=== PATIENT | male | born 1950 | race African-American/Black ===

== ENCOUNTER 2020-06-20 09:46 | Inpatient (IN) | payer BC ==
[~2020-06-20] VITALS: Ht 180.3 cm; Wt 90.7 kg
[2020-06-20] MEDS ORDERED: FUROSEMIDE 20MG/2ML VIAL IVP ONE (10:15)
[2020-06-20 10:35] LABS: CHLORIDE 107 mEq/L (98-107)
[2020-06-20 10:39] LABS: BASOPHILS % 0.7 % (0.0-2.0); EOSINOPHILS % 1.9 % (0.0-5.0); ETHANOL BLOOD < 10 mg/dL; HEMATOCRIT. 34.6 % (42.0-52.0); HEMOGLOBIN. 11.1 g/dL (14.0-18.0); LYMPHOCYTES % 16.4 % (20.0-50.0); MEAN CORPUSCULAR HEMOGLOBIN 25.6 pg (28.0-32.0); MEAN CORPUSCULAR VOLUME 80.1 fL (80.0-94.0); MEAN PLATELET VOLUME 7.7 fl (7.4-10.4); MONOCYTES % 12.9 % (2.0-8.0); NEUTROPHILS % 68.1 % (40.0-76.0); PLATELET 277 x1000/uL (130-400); RED BLOOD CELL COUNT 4.33 mill/uL (4.7-6.1); RED CELL DISTRIBUTION WIDTH 16.5 % (11.6-14.6)
[2020-06-20] MEDS ORDERED: ASPIRIN 81MG TABLET PO ONE (11:00)
[2020-06-20 11:31] LABS: *AMPHETAMINES SCREEN URINE NEGATIVE (NEGATIVE)
[2020-06-20 11:32] LABS: *BARBITURATES SCREEN URINE NEGATIVE (NEGATIVE); *BENZODIAZEPINES SCREEN URINE NEGATIVE (NEGATIVE); *COCAINE SCREEN URINE NEGATIVE (NEGATIVE); CANNABINOID URINE SCREEN NEGATIVE (NEGATIVE); METHADONE URINE SCREEN NEGATIVE (NEGATIVE); OPIATES URINE SCREEN NEGATIVE (NEGATIVE); PHENCYCLIDINE URINE SCREEN NEGATIVE (NEGATIVE)
[2020-06-20 13:00] VITALS: BP 148/93
[2020-06-20] MEDS ORDERED: MAGNESIUM/ALUMINUM HYDROXIDE/SIMETHICONE 30ML UDC PO PRN (13:15)
[2020-06-20] MEDS ORDERED: IPRATROPIUM/ALBUTEROL 0.5-3(2.5)MG/3ML NEB NEB PRN (13:15)
[2020-06-20] MEDS ORDERED: KETOROLAC 15MG/ML VIAL IV PRN (13:15)
[2020-06-20] MEDS ORDERED: NITROGLYCERIN 0.4MG TABLET SL SL PRN (13:15)
[2020-06-20] MEDS ORDERED: CLONIDINE 0.1MG TABLET PO PRN (13:15)
[2020-06-20] MEDS ORDERED: ACETAMINOPHEN 325MG TABLET PO PRN ×2 (13:15)
[2020-06-20] MEDS ORDERED: ONDANSETRON HCL 4MG/2ML INJ IV PRN (13:15)
[2020-06-20] MEDS ORDERED: GUAIFENESIN 200MG/10ML SUGAR FREE UDC PO PRN (13:15)
[2020-06-20 14:28] LABS: FOLIC ACID (FOLATE) SERUM 11.2 ng/mL (>5.38)
[2020-06-20] MEDS: ENOXAPARIN 40MG/0.4ML SYR SUBCUT SCH (15:32)
[2020-06-20 16:00] VITALS: BP 146/101
[2020-06-20 16:41] VITALS: BP 139/90
[2020-06-20 17:30] LABS: CREATINE KINASE MB FRACTION 2.4 ng/mL (0.5-3.6)
[2020-06-20] MEDS: CARVEDILOL 3.125 MG TABLET PO SCH (18:30)
[2020-06-20 20:00] VITALS: BP 141/96
[2020-06-20] MEDS: ASCORBIC ACID 500 MG TABLET PO SCH (20:47)
[2020-06-20] MEDS: SPIRONOLACTONE 25MG TABLET PO SCH (20:47)
[2020-06-20] MEDS: FUROSEMIDE 40MG/4ML VIAL IVP SCH (20:47)
[2020-06-20] MEDS ORDERED: ZOLPIDEM TARTRATE 5MG TABLET PO PRN (21:00)
[2020-06-21] VITALS: BP 127/88
[2020-06-21 00:33] LABS: CREATINE KINASE MB FRACTION 2.4 ng/mL (0.5-3.6)
[2020-06-21 04:00] VITALS: BP 120/65
[2020-06-21] MEDS: CARVEDILOL 3.125 MG TABLET PO SCH ×2 (05:19→17:06)
[2020-06-21 07:58] LABS: HEMATOCRIT. 36.9 % (42.0-52.0); HEMOGLOBIN. 11.7 g/dL (14.0-18.0); MEAN CORPUSCULAR HEMOGLOBIN 25.1 pg (28.0-32.0); MEAN CORPUSCULAR VOLUME 79.4 fL (80.0-94.0); PLATELET 290 x1000/uL (130-400); RED BLOOD CELL COUNT 4.65 mill/uL (4.7-6.1); RED CELL DISTRIBUTION WIDTH 16.5 % (11.6-14.6)
[2020-06-21 08:07] LABS: CHLORIDE 103 mEq/L (98-107)
[2020-06-21 08:15] LABS: PHOSPHORUS 3.5 mg/dL (2.5-4.9)
[2020-06-21 08:30] VITALS: BP 137/85
[2020-06-21] MEDS: FUROSEMIDE 40MG/4ML VIAL IVP SCH ×2 (09:35→21:01)
[2020-06-21] MEDS: ASCORBIC ACID 500 MG TABLET PO SCH ×2 (09:36→21:01)
[2020-06-21] MEDS: CHOLECALCIFEROL (D3) 1000 UNIT TABLET PO SCH (09:36)
[2020-06-21] MEDS: ASPIRIN 325MG EC TABLET PO SCH (09:36)
[2020-06-21] MEDS: ZINC SULFATE 220 MG ( 50 ) CAPSULE PO SCH (09:36)
[2020-06-21] MEDS: SPIRONOLACTONE 25MG TABLET PO SCH ×2 (09:37→21:01)
[2020-06-21] MEDS ORDERED: POTASSIUM CHLORIDE 20MEQ/PACKET PO NR (10:00)
[2020-06-21 12:00] VITALS: BP 144/85
[2020-06-21 15:47] LABS: PLATELET ESTIMATE NORMAL
[2020-06-21 16:00] VITALS: BP 128/88
[2020-06-21] MEDS: ENOXAPARIN 40MG/0.4ML SYR SUBCUT SCH (17:05)
[2020-06-21 20:00] VITALS: BP 111/66
[2020-06-22] VITALS: BP 119/86
[2020-06-22 04:00] VITALS: BP 149/99
[2020-06-22] MEDS: CARVEDILOL 3.125 MG TABLET PO SCH ×2 (06:17→18:01)
[2020-06-22 07:13] LABS: BASOPHILS % 0.6 % (0.0-2.0); EOSINOPHILS % 4.4 % (0.0-5.0); HEMOGLOBIN. 12.5 g/dL (14.0-18.0); LYMPHOCYTES % 26.7 % (20.0-50.0); MEAN CORPUSCULAR HEMOGLOBIN 25.4 pg (28.0-32.0); MEAN CORPUSCULAR VOLUME 79.2 fL (80.0-94.0); MEAN PLATELET VOLUME 8.7 fl (7.4-10.4); MONOCYTES % 14.6 % (2.0-8.0); NEUTROPHILS % 53.7 % (40.0-76.0); PLATELET 325 x1000/uL (130-400); RED BLOOD CELL COUNT 4.92 mill/uL (4.7-6.1); RED CELL DISTRIBUTION WIDTH 16.3 % (11.6-14.6)
[2020-06-22 07:24] LABS: CHLORIDE 102 mEq/L (98-107)
[2020-06-22 07:45] LABS: PHOSPHORUS 3.8 mg/dL (2.5-4.9)
[2020-06-22 08:00] VITALS: BP 144/103
[2020-06-22] MEDS: FUROSEMIDE 40MG/4ML VIAL IVP SCH ×2 (09:12→20:43)
[2020-06-22] MEDS: DOCUSATE SODIUM 100MG CAPSULE PO PRN (09:13)
[2020-06-22] MEDS: CHOLECALCIFEROL (D3) 1000 UNIT TABLET PO SCH (09:13)
[2020-06-22] MEDS: SPIRONOLACTONE 25MG TABLET PO SCH ×2 (09:13→20:43)
[2020-06-22] MEDS: ZINC SULFATE 220 MG ( 50 ) CAPSULE PO SCH (09:13)
[2020-06-22] MEDS: ASPIRIN 325MG EC TABLET PO SCH (09:13)
[2020-06-22] MEDS: ASCORBIC ACID 500 MG TABLET PO SCH ×2 (09:13→20:44)
[2020-06-22 12:31] VITALS: BP 138/86
[2020-06-22] MEDS: ENOXAPARIN 40MG/0.4ML SYR SUBCUT SCH (15:39)
[2020-06-22 16:36] VITALS: BP 134/77
[2020-06-22 20:00] VITALS: BP 163/89
[2020-06-23] VITALS: BP 125/77
[2020-06-23 04:00] VITALS: BP 140/87
[2020-06-23] MEDS: CARVEDILOL 3.125 MG TABLET PO SCH ×2 (06:17→17:58)
[2020-06-23 08:00] VITALS: BP 124/78
[2020-06-23] MEDS: CHOLECALCIFEROL (D3) 1000 UNIT TABLET PO SCH (09:15)
[2020-06-23] MEDS: ZINC SULFATE 220 MG ( 50 ) CAPSULE PO SCH (09:15)
[2020-06-23] MEDS: SPIRONOLACTONE 25MG TABLET PO SCH ×2 (09:15→21:00)
[2020-06-23] MEDS: DOCUSATE SODIUM 100MG CAPSULE PO PRN (09:15)
[2020-06-23] MEDS: ASPIRIN 325MG EC TABLET PO SCH (09:15)
[2020-06-23] MEDS: ASCORBIC ACID 500 MG TABLET PO SCH ×2 (09:16→21:08)
[2020-06-23] MEDS: FUROSEMIDE 40MG/4ML VIAL IVP SCH ×2 (09:16→21:08)
[2020-06-23] MEDS: TRAMADOL 50MG TABLET PO PRN ×2 (09:17→21:11)
[2020-06-23 10:05] LABS: CHLORIDE 98 mEq/L (98-107)
[2020-06-23 12:05] VITALS: BP 117/68
[2020-06-23] MEDS: ENOXAPARIN 40MG/0.4ML SYR SUBCUT SCH (14:52)
[2020-06-23 16:20] VITALS: BP 146/85
[2020-06-23 20:00] VITALS: BP 121/65
[2020-06-24] VITALS: BP 113/71
[2020-06-24 04:00] VITALS: BP 132/75
[2020-06-24] MEDS: CARVEDILOL 3.125 MG TABLET PO SCH (06:03)
[2020-06-24 08:00] VITALS: BP 125/91
[2020-06-24] MEDS: SPIRONOLACTONE 25MG TABLET PO SCH (09:05)
[2020-06-24] MEDS: CHOLECALCIFEROL (D3) 1000 UNIT TABLET PO SCH (09:05)
[2020-06-24] MEDS: FUROSEMIDE 40MG/4ML VIAL IVP SCH (09:05)
[2020-06-24] MEDS: ASCORBIC ACID 500 MG TABLET PO SCH (09:05)
[2020-06-24] MEDS: ZINC SULFATE 220 MG ( 50 ) CAPSULE PO SCH (09:05)
[2020-06-24] MEDS: ASPIRIN 325MG EC TABLET PO SCH (09:05)
[2020-06-24] MEDS ORDERED: TAMS-11 PO (10:17)
[2020-06-24] MEDS ORDERED: LOSA50TA41 PO (10:18)
[2020-06-24] MEDS ORDERED: CARV6.2548 PO (10:18)
[2020-06-24] MEDS ORDERED: GABA-532 PO (10:18)
[2020-06-24] MEDS ORDERED: SPIR25TA6 PO (10:19)
[2020-06-24] MEDS ORDERED: ISOS1TAB MT (10:20)
[2020-06-24 11:01] VITALS: BP 125/91
== END 2020-06-24 13:45 | disposition home or self-care (01) | DRG 280 ==
LOC: ER 10:22 → 6WST 11:02 → EDBEDREQ 11:05 → EDBEDREQTM 11:05 → ENRESERV 12:30 → SUPCPDRO 13:06
PROVIDERS: ADMIT Internal Medicine; ATTEND Internal Medicine
DX: I21.4 Non-ST elevation (NSTEMI) myocardial infarction (principal); I50.43 Acute on chronic combined systolic (congestive) and diastolic (congestive) heart failure; E44.0 Moderate protein-calorie malnutrition; I47.2 Ventricular tachycardia; I42.9 Cardiomyopathy, unspecified; I11.0 Hypertensive heart disease with heart failure; D63.8 Anemia in other chronic diseases classified elsewhere; E83.51 Hypocalcemia; F14.10 Cocaine abuse, uncomplicated; I25.10 Atherosclerotic heart disease of native coronary artery without angina pectoris; Z82.49 Family history of ischemic heart disease and other diseases of the circulatory system; Z91.19 Patient's noncompliance with other medical treatment and regimen; Z88.8 Allergy status to other drugs, medicaments and biological substances; Z68.27 Body mass index [BMI] 27.0-27.9, adult
CPT/HCPCS: 36415; 71045; 80048; 80053; 80061; 80305; 80320; 82550; 82553; 82607; 82746; 83036; 83735; 83880; 84100; 84443; 84484; 85025; 93005; 93306; 93970; 99291; J1650; J1940; G0480